=== PATIENT | female | born 1990 | race Caucasian/White ===

== ENCOUNTER 2018-11-06 00:09 | Emergency (ER) | payer OTHER ==
[2018-11-06 00:38] VITALS: BP 105/65; PULSE 71; TEMP 97.2; BMI 21.6
--- NOTE | 2018-11-06 00:58 | PDOC ---
History of Present Illness <Zeinab Cheung - Last Filed: 11/06/18 04:14> - General History Source: Patient Exam Limitations: No Limitations - History of Present Illness Travel History: No Initial Comments: 11/06/18 00:56 HISTORY OF PRESENT ILLNESS: This is a 27-year-old woman with denies medical history presents emergency department for evaluation of pelvic pain which occurred today while having sex. Patient reports the pain occurs after deep penetration. Patient reports she's had 2 sexual partners in her life is been with her current partner for the past 6 months. Reports due to her not having protected sex and she has an IUD. Patient reports she's had intercourse with this gentleman before it wasn't until today that she experienced the pain. She denies any dysuria, hematuria or vaginal discharge. Patient reports her last bowel movement was 4/2 and reports frequency of one bowel movement approximately every 2 weeks. No recent travel or sick contacts. PAST MEDICAL HISTORY: Denies past medical history SURGICAL HISTORY: Denies ALLERGIES: No known drug allergies REVIEW OF SYSTEMS General/Constitutional: Denies fever or chills. Denies weakness, weight change. HEENT: Denies change in vision. Denies ear pain or discharge. Denies sore throat. Cardiovascular: Denies chest pain or shortness of breath. Respiratory: Denies cough, wheezing, or hemoptysis. Gastrointestinal: Denies nausea, vomiting, diarrhea or constipation. Denies rectal bleeding. Genitourinary: see HPI Musculoskeletal: Denies joint or muscle swelling or pain. Denies neck or back pain. Skin and breasts: Denies rash or easy bruising. Neurologic: Denies headache, vertigo, loss of consciousness, or loss of sensation. Psychiatric: Denies depression or anxiety. Endocrine: Denies increased thirst. Denies abnormal weight change. Hematologic/Lymphatic: Denies anemia, easy bleeding, or history of blood clots. Allergic/Immunologic: Denies hives or skin allergy. Denies latex allergy. PHYSICAL EXAM General Appearance: Well-appearing, appropriately dressed. No apparent distress , no intoxication. Gastrointestinal/Abdominal: Normal bowel sounds. Abdomen soft, non-distended. No tenderness or rebound tenderness. No organomegaly, pulsatile mass, guarding, hernia, hepatomegaly, splenomegaly. Lymphatic: No adenopathy, tenderness. Musculoskeletal/Extremities: Normal inspection. FROM of all extremities, normal capillary refill. Pelvis Stable. No CVA tenderness. No tenderness to extremities, pedal edema, swelling, erythema or deformity. Integumentary: Appropriate color, dry, warm. No cyanosis, erythema, jaundice or rash Neurologic: records administrator II-XII intact. Fully oriented, alert. Appropriate mood/affect. Motor strength 5/5. No appreciable EOM palsy, facial droop or sensory deficit. <Ashu Horner - Last Filed: 11/06/18 04:45> - General Chief Complaint: Pain Stated Complaint: ABD PAIN Time Seen by Provider: 11/06/18 00:39 Past History <Zeinab Cheung - Last Filed: 11/06/18 04:14> - Past Medical History COPD: No Thyroid Disease: Yes - Suicide/Smoking/Psychosocial Hx Smoking History: Never smoked <Ashu Horner - Last Filed: 11/06/18 04:45> - Past Medical History Allergies/Adverse Reactions: Allergies Allergy/AdvReac Type Severity Reaction Status Date / Time No Known Allergies Allergy Verified 11/06/18 00:38 Home Medications: Ambulatory Orders Doxycycline Hyclate 100 mg PO BID #28 capsule 11/06/18 *Physical Exam - Vital Signs Last Vital Signs Temp Pulse Resp BP Pulse Ox 97.2 F L 71 18 105/65 100 11/06/18 00:31 11/06/18 00:31 11/06/18 00:31 11/06/18 00:31 11/06/18 00:31 <Zeinab Cheung - Last Filed: 11/06/18 04:14> - Vital Signs Last Vital Signs Temp Pulse Resp BP Pulse Ox 97.2 F L 71 18 105/65 100 11/06/18 00:31 11/06/18 00:31 11/06/18 00:31 11/06/18 00:31 11/06/18 00:31 - Physical Exam Comments:: 11/06/18 02:06 JOSEPH Denis present as inside b2b sales Female Pelvic Exam: positive: normal external exam, cervical os closed, CMT, discharge (mucopurulent cervical d/c present), adnexal tenderness (bilateral) <Ashu Horner - Last Filed: 11/06/18 04:45> ED Treatment Course - ADDITIONAL ORDERS Additional order review: Laboratory Results 11/06/18 00:46 Urine Color Yellow Urine Appearance Cloudy Urine pH >= 9.0 H Ur Specific [place] 1.027 Urine Protein Negative Urine Glucose (UA) Negative Urine Ketones 2+ H Urine Blood Negative Urine Nitrite Negative Urine Bilirubin Negative Urine Urobilinogen 1.0 Ur Leukocyte Esterase 1+ H Urine WBC (Auto) 4 Urine RBC (Auto) 3 Urine Casts (Auto) 1 U Pathogenic Cast Auto 0 U Epithel Cells (Auto) 3 U Sm Round Cell (Auto) 0 Urine Bacteria (Auto) 76 Urine Yeast (Auto) 0 Urine HCG, Qual Negative - RADIOLOGY Radiograph Interpretation: 11/06/18 04:15 Patient Name: BERNIE DAN THIS IS A PRELIMINARY REPORT FROM IMAGING HYDROMETEOROLOGICAL TECHNICIAN DATE OF SERVICE: 2018-11-06 00:57:02 IMAGES: 66 EXAM: ULTRASOUND PELVIS, COMPLETE AND TRANSVAGINAL ULTRASOUND AND DUPLEX SCAN PELVIS, COMPLETE IUD in lower uterine segment, consider gynecological consultation. Endometrial stripe complex 4 mm thick. Enlarged left ovary, 6.0 x 4.4 x 3.4 cm compared to 3.4 x 3.1 x 2.6 cm on right. 3.8 x 2.8 x 2.7 cm probable left ovarian cyst, with tubo-ovarian complex thought less likely. No ovarian torsion. Color flow bilaterally with appropriate arterial and/or venous waveforms. Small physiologic free fluid posterior and anterior cul-de-sacs. Unremarkable visualized portion of bladder. THIS DOCUMENT HAS BEEN ELECTRONICALLY SIGNED - Medications Given in the ED: ED Medications Discontinued Medications Generic Name Dose Route Start Last Admin Trade Name Ajith PRN Reason Stop Dose Admin Ceftriaxone Sodium 250 mg 11/06/18 02:05 11/06/18 02:12 Rocephin - IM 11/06/18 02:06 250 mg ONCE ONE Administration Ibuprofen 600 mg 11/06/18 03:23 11/06/18 03:25 Motrin - PO 11/06/18 03:24 600 mg ONCE ONE Administration <Zeinab Cheung - Last Filed: 11/06/18 04:14> - RADIOLOGY Radiology Studies Ordered: Category Date Time Status TRANSVAGINAL ULTRASOUND US [US] Stat Ultrasound 11/06/18 00:39 Ordered <Ashu Horner - Last Filed: 11/06/18 04:45> Medical Decision Making - Medical Decision Making 11/06/18 02:08 A/P: 27-year-old female for evaluation for dyspareunia Cervical motion tenderness present. Bilateral adnexal tenderness noted. No adnexal masses noted. mucopurulent cervical discharge noted Differential diagnosis includes but is not limited to PID, UTI, tubo-ovarian abscess, cervicitis Urinalysis Urine culture Urine GC Genital culture Transvaginal ultrasound Ceftriaxone 250 mg IM 11/06/18 02:20 11/06/18 04:24 Ultrasound as read by imaging coke oven mason: Iodine the lower segments, consider gynecological consultation. Endometrial stripe complex 4 mm thick. Enlarged left ovary, 6.0 x 4.4 x 3.4 cm compared to 3 x 4 x 3.1 x 2.6 under on the right. 3.8 x 2.8 x 2.7 cm probable left ovarian cyst with tubo-ovarian complex thought less likely. No ovarian torsion. Small physiologic free fluid posterior and anterior cul-de-sacs. Unremarkable visualized portion of the bladder. MANUFACTURING ASSISTANT telephone consult placed. 11/06/18 04:[address] Mota who recommends leaving IUD in place outpatient follow-up with her global creative chairman for reevaluation and potential removal and replacement. I discussed the physical exam findings, ancillary test results and final diagnoses with the patient. I answered all of the patient's questions. The patient was satisfied with the care received and felt comfortable with the discharge plan and treatment plan. The patient will call their primary care physician within 24 hours to arrange follow-up and will return to the Emergency Department with any new, persistent or worsening symptoms. <Ashu Horner - Last Filed: 11/06/18 04:45> *DC/Admit/Observation/Transfer <Zeinab Cheung - Last Filed: 11/06/18 04:14> - Discharge Dispostion Decision to Admit order: No <Ashu Horner - Last Filed: 11/06/18 04:45> Diagnosis at time of Disposition: PID (acute pelvic inflammatory disease) - Discharge Dispostion Condition at time of disposition: Fair - Prescriptions Prescriptions: Doxycycline Hyclate 100 mg PO BID #28 capsule - Patient Instructions Printed Discharge Instructions: DI for Pelvic Inflammatory Disease Additional Instructions: You have been treated with Rocephin 250 mg injection for treatment of presumned gonorrhea Take Doxycycline 100mg twice a day for the next 2 weeks. Finish all of the medicine. Contact all of your sexual partners and advise them to be tested and treated for STD's. Avoid all sexual activity until you have finished treatment. Your IUD is now in the lower segment of the uterus. When you follow-up with your global creative chairman, have this evaluated. The gonorrhea and chlamydia testing will not be completed for the next few days. You may call and leave message for return phone call with lab results. Be sure to be clear with your name, birthdate, and phone number Always use condoms with the partners Followup with AIRPLANE ELECTRICIAN or PMD in one week for reevaluation and retesting.
[2018-11-06 01:07] LABS: PH,URINE >= 9.0 (5.0-8.0); URINE APPEARANCE CLOUDY; URINE BILIRUBIN NEGATIVE (NEGATIVE); URINE COLOR YELLOW; URINE GLUCOSE (UA) NEGATIVE (NEGATIVE); URINE KETONE 2+ (NEGATIVE); URINE LEUK ESTERASE 1+ (NEGATIVE); URINE NITRITE NEGATIVE (NEGATIVE); URINE PROTEIN NEGATIVE (NEGATIVE)
[2018-11-06] MEDS ORDERED: cefTRIAXone SODIUM 1 GM VIAL ONE (02:08)
[2018-11-06] MEDS ORDERED: LIDOCAINE HCL 1%, 10 MG/ML (20ML VIAL) ONE (02:08)
[2018-11-06 02:22] LABS: HCG,QUALITATIVE URINE Negative
[2018-11-06 02:46] LABS: URINE RBC 3 /hpf (0-4); URINE WBC 4 /hpf (0-5)
[2018-11-06 02:47] LABS: EPI CELLS 3 /HPF (0-5); URINE BACTERIA 76 /hpf (NEGATIVE); URINE CASTS 1 /hpf (0-8); YEAST 0 (NEGATIVE)
[2018-11-06] MEDS ORDERED: IBUPROFEN 600 MG TABLET (FP) PO ONE ×2 (03:22→03:23)
== END 2018-11-06 04:52 | disposition home or self-care (01) ==
LOC: JER 00:09
DX: N73.8 Other specified female pelvic inflammatory diseases (principal); N94.19 Other specified dyspareunia; N83.202 Unspecified ovarian cyst, left side
CPT/HCPCS: 36415; 76830-TC; 81003; 84703; 87070; 87086; 87186; 87205; 87491; 87591; 96372; 99282-25